=== PATIENT | male | born 1985 | race African-American/Black ===

== ENCOUNTER 2024-10-27 02:52 | Emergency (ER) | payer MEDICAID ==
[~2024-10-27] VITALS: Ht 182.9 cm; Wt 99.8 kg
[2024-10-27] MEDS ORDERED: ACETAMINOPHEN ES 500 MG TABLET ONE (04:31)
[2024-10-27] MEDS ORDERED: IBUPROFEN 600 MG TABLET ONE (04:32)
[2024-10-27 04:39] LABS: PLATELET COUNT (AUTO) 208 K/uL (150-450); RED BLOOD CELL COUNT(AUTO) 4.86 MIL/uL (4.5-6.0); RED CELL DISTRIBUTION WIDTH 14.0 % (11.5-15.0); WHITE BLOOD COUNT (AUTO) 14.6 K/uL (4.3-11.0)
[2024-10-27] MEDS: ACETAMINOPHEN ES 500 MG TABLET PO ONE (04:39)
[2024-10-27] MEDS: IBUPROFEN 600 MG TABLET PO ONE (04:39)
[2024-10-27] MEDS: IV NS 0.9% 1,000 ML BAG IV ONE (04:39)
[2024-10-27 04:52] LABS: CALCIUM, SERUM 8.5 mg/dL (8.5-10.1); CREATININE 2.1 mg/dL (0.6-1.3); SODIUM SERUM 131.0 mmol/L (136-145); UREA NITROGEN, BLOOD 24.0 mg/dL (7-18)
[2024-10-27 04:56] LABS: INR 0.97 (0.91-1.10)
[2024-10-27 04:58] LABS: ASPARTATE AMINOTRANSFERASE 59.0 U/L (15-37); TOTAL PROTEIN, SERUM 8.5 g/dL (6.4-8.2)
[2024-10-27 05:03] LABS: LACTIC ACID 1.7 mmol/L (0.4-2.0)
[2024-10-27] MEDS ORDERED: ONDA4TAB5 PO (05:47)
[2024-10-27] MEDS ORDERED: AZITHROMYCIN 500 MG VIAL ONE (05:47)
[2024-10-27] MEDS ORDERED: METF-881 PO (05:47)
[2024-10-27] MEDS ORDERED: IBUP-1490 PO (05:47)
[2024-10-27] MEDS ORDERED: POTASSIUM CHLORIDE 20 MEQ TAB.PRT.SR PO ONE (05:47)
[2024-10-27] MEDS ORDERED: AMOX-430 PO (05:47)
[2024-10-27] MEDS ORDERED: CEFTRIAXONE 1GM BAG (ER ONLY) 50 ML IV ONE (05:47)
[2024-10-27] MEDS: CEFTRIAXONE 1GM BAG (ER ONLY) 1 GM/50 ML PIGGYBACK IV ONE (06:01)
[2024-10-27] MEDS: POTASSIUM CHLORIDE 20 MEQ TAB.PRT.SR PO ONE (06:02)
[2024-10-27] MEDS: AZITHROMYCIN 500 MG in IV D5W 250 ML IV ONE (06:14)
[2024-10-27 07:10] VITALS: BP 111/75; TEMP 98.9; O2SAT 97
== END 2024-10-27 07:14 | disposition home or self-care (01) ==
LOC: ER 02:56
DX: J18.1 Lobar pneumonia, unspecified organism (principal); E87.6 Hypokalemia; R51.9 Headache, unspecified; N28.9 Disorder of kidney and ureter, unspecified; Z86.2 Personal history of diseases of the blood and blood-forming organs and certain disorders involving the immune mechanism; Z20.822 Contact with and (suspected) exposure to COVID-19
CPT/HCPCS: 99285; 96365; 70450; 71045; 96361; 87426; 96368; 93005; 84145; 85025; 80048; 87040 ×2; 83605; 80076; 36415; 87880; 85730; 87070; J7050; J0456; J0696; 86403-TC